=== PATIENT | male | born 1980 | race Caucasian/White ===

== ENCOUNTER 2017-04-27 13:16 | Emergency (ER) | payer OTHER ==
[~2017-04-27] VITALS: Ht 177.8 cm; Wt 104.3 kg
[2017-04-27] MEDS ORDERED: NAPROSYN500 MG PO (15:00)
[2017-04-27 15:16] VITALS: BP 122/71
== END 2017-04-27 15:17 | disposition home or self-care (01) ==
LOC: ER 13:16
DX: S83.92XA Sprain of unspecified site of left knee, initial encounter (principal); F10.99 Alcohol use, unspecified with unspecified alcohol-induced disorder; X58.XXXA Exposure to other specified factors, initial encounter; Y93.39 Activity, other involving climbing, rappelling and jumping off; Y92.89 Other specified places as the place of occurrence of the external cause; Y99.8 Other external cause status